=== PATIENT | male | born 1970 | race Caucasian/White ===

== ENCOUNTER 2017-11-16 11:21 | Observation (INO) | payer MEDICARE ==
[~2017-11-16] VITALS: Ht 180.3 cm; Wt 181.9 kg
[~2017-11-16 11:21] MED LIST: ACTOS 45MG45 MG/TAB PO; AMOXICILLIN 50500 MG PO; AMOXICILLIN 8751 TAB PO; CANA100T PO; CIPRO 500MG TA500 MG PO; DIABETA 5MG5 MG/TAB PO; DIABETA5 MG PO; FLEXERIL 1010 MG/TAB PO; GLUCOPHAGE850 MG/TAB PO; GLUCOTROL 5M5 MG/TAB PO; KOMBIGLYZE XR 11 TER; KOMBIGLYZE XR 11 TER PO; LEVEMIR100 U/ML SQ; LISINOPRIL1 POW; LORTAB 5/500 501 TAB PO; METFORMIN1000 MG PO; NAPROSYN500 MG PO; NORCO 325 MG-7.1 TAB PO; PERCOCET 325 MG1 TA2 PO; PREDNISONE20 MG PO; PRINZIDE 12.5 M1 TA1; PRINZIDE 12.5 M1 TA1 PO; ROCEPHIN2 GM IV
[2017-11-16 11:55] LABS: BASO # 0.1 (0.0-0.2); BASO % 0.9 % (0.0-2.0); EOS # 0.3 (0.0-0.7); EOS % 3.6 % (0-4.0); GRAN # 4.3 (1.4-6.5); GRAN % 62.6 % (42.2-75.2); LYMPH # 1.8 (1.2-3.4); LYMPH % 25.9 % (20.0-51.0); MEAN CELL VOLUME 95 fl (80.0-100.0); MEAN CORPUSCULAR HEMOGLOBIN 30 pg (27.0-31.0); MEAN CORPUSCULAR HGB CONC 32 g/dl (33.0-37.0); MEAN PLATELET VOLUME 11.4 fl (7.4-10.4); MONO # 0.5 (0.1-0.6); MONO % 6.7 % (1.7-9.3); PLATELET COUNT 206 K/mm3 (130-400); RED BLOOD COUNT 5.66 M/mm3 (4.20-5.60); REDCELL DISTRIBUTION WIDTH-CV 14.2 % (11.5-14.5)
[2017-11-16 11:58] LABS: HEMATOCRIT 53.6 % (42.0-52.0)
[2017-11-16 12:00] LABS: PROTHROMBIN TIME 12.1 SECONDS (9.7-12.8)
[2017-11-16 12:03] LABS: CREATINE KINASE 90 U/L (55-170); LIPASE 141 U/L (23-300); PARTIAL THROMBOPLASTIN TIME 31.7 SECONDS (26.0-37.0)
[2017-11-16 12:15] LABS: TROPONIN-I < 0.012 ng/mL (0.000-0.034)
[2017-11-16 12:20] LABS: ALBUMIN 3.7 gm/dL (3.5-5.0); BILIRUBIN,TOTAL 0.9 mg/dL (0.0-1.0); CREATININE, serum 0.88 mg/dL (0.66-1.25); POTASSIUM 4.2 mmol/L (3.4-5.0); TOTAL PROTEIN 7.1 gm/dL (6.4-8.2)
[2017-11-16] MEDS ORDERED: GLUCOTROL 5M5 MG/TAB PO (16:17)
[2017-11-16] MEDS ORDERED: TOPROL XL 50MG50 MG PO (16:18)
[2017-11-16] MEDS ORDERED: ZESTRIL 20MG TA20 MG PO (16:18)
[2017-11-16] MEDS ORDERED: NORVASC 5MG5 MG/TAB PO (16:19)
[2017-11-16] MEDS ORDERED: LASIX 40MG TABL40 MG PO (16:19)
[2017-11-16 17:21] VITALS: BP 116/87; PULSE 74; TEMP 98.1
[2017-11-16 20:32] VITALS: BP 132/73; PULSE 89; TEMP 97.8
[2017-11-16 23:45] VITALS: BP 109/63; PULSE 72; TEMP 97.9
[2017-11-17 03:45] VITALS: BP 141/79; PULSE 75; TEMP 98.1
[2017-11-17 06:17] LABS: BASO # 0.1 (0.0-0.2); BASO % 0.8 % (0.0-2.0); EOS # 0.2 (0.0-0.7); EOS % 3.6 % (0-4.0); GRAN # 4.3 (1.4-6.5); GRAN % 70.2 % (42.2-75.2); HEMATOCRIT 51.4 % (42.0-52.0); HEMOGLOBIN 16.2 g/dl (13.5-18.0); LYMPH # 1.1 (1.2-3.4); LYMPH % 17.2 % (20.0-51.0); MEAN CELL VOLUME 96 fl (80.0-100.0); MEAN CORPUSCULAR HEMOGLOBIN 30 pg (27.0-31.0); MEAN CORPUSCULAR HGB CONC 32 g/dl (33.0-37.0); MEAN PLATELET VOLUME 10.3 fl (7.4-10.4); MONO # 0.5 (0.1-0.6); PLATELET COUNT 178 K/mm3 (130-400); RED BLOOD COUNT 5.37 M/mm3 (4.20-5.60); REDCELL DISTRIBUTION WIDTH-CV 14.2 % (11.5-14.5)
[2017-11-17 06:38] LABS: ANION GAP 10 mmol/L (7-16); BLOOD UREA NITROGEN 16 mg/dL (9-20); CALCIUM 8.8 mg/dL (8.4-10.2); CARBON DIOXIDE 33 mmol/L (22-30); CHLORIDE 95 mmol/L (98-107); CREATININE, serum 0.83 mg/dL (0.66-1.25); GLUCOSE 103 mg/dL (74-106); MAGNESIUM 1.4 mg/dL (1.6-2.3); SODIUM 138 mmol/L (137-145)
[2017-11-17 06:43] LABS: TROPONIN-I < 0.012 ng/mL (0.000-0.034)
[2017-11-17 09:03] VITALS: BP 144/77; PULSE 74; TEMP 98.4
[2017-11-17 12:36] VITALS: BP 157/87; PULSE 73; TEMP 98.5
[2017-11-17 16:49] VITALS: BP 125/76; PULSE 73; TEMP 98
[2017-11-17 20:18] VITALS: BP 137/75; PULSE 73; TEMP 98.3
[2017-11-18 00:02] VITALS: BP 147/77; PULSE 70; TEMP 97.5
[2017-11-18 04:37] VITALS: BP 135/64; PULSE 74; TEMP 97.7
[2017-11-18 06:56] LABS: BASO # 0.1 (0.0-0.2); EOS # 0.2 (0.0-0.7); EOS % 4.4 % (0-4.0); GRAN # 3.3 (1.4-6.5); GRAN % 65.9 % (42.2-75.2); LYMPH % 20.8 % (20.0-51.0); MEAN CELL VOLUME 96 fl (80.0-100.0); MEAN CORPUSCULAR HEMOGLOBIN 30 pg (27.0-31.0); MEAN CORPUSCULAR HGB CONC 31 g/dl (33.0-37.0); MEAN PLATELET VOLUME 10.6 fl (7.4-10.4); MONO # 0.4 (0.1-0.6); MONO % 7.5 % (1.7-9.3); PLATELET COUNT 180 K/mm3 (130-400); RED BLOOD COUNT 5.74 M/mm3 (4.20-5.60); REDCELL DISTRIBUTION WIDTH-CV 14.1 % (11.5-14.5)
[2017-11-18 07:05] LABS: HEMATOCRIT 54.8 % (42.0-52.0)
[2017-11-18 07:29] LABS: CALCIUM 9.1 mg/dL (8.4-10.2); CREATININE, serum 0.84 mg/dL (0.66-1.25); POTASSIUM 4.1 mmol/L (3.4-5.0)
[2017-11-18 08:00] VITALS: BP 129/89; PULSE 77; TEMP 97.6
[2017-11-18] MEDS ORDERED: LASIX 40MG TABL40 MG PO (09:30)
[2017-11-18 11:25] VITALS: BP 132/77; PULSE 86; TEMP 97.9
== END 2017-11-18 15:00 | disposition home or self-care (01) ==
LOC: COL.ER 11:21 → MEDICAL 13:08
PROVIDERS: Emergency Medicine; Physician Assistant
DX: I11.0 Hypertensive heart disease with heart failure (principal); I50.30 Unspecified diastolic (congestive) heart failure; E11.9 Type 2 diabetes mellitus without complications; Z79.84 Long term (current) use of oral hypoglycemic drugs; R09.89 Other specified symptoms and signs involving the circulatory and respiratory systems; R60.0 Localized edema; R00.0 Tachycardia, unspecified; Z79.01 Long term (current) use of anticoagulants; Z82.49 Family history of ischemic heart disease and other diseases of the circulatory system; Z88.5 Allergy status to narcotic agent
CPT/HCPCS: 99223-AI; G0378; G8978-GP; G8979-GP; J1650; J1940; Q9967

== ENCOUNTER 2019-04-25 09:51 | Day surgery (SDC) | payer MEDICARE ==
[~2019-04-25] VITALS: Ht 180.3 cm; Wt 171.4 kg
[~2019-04-25 09:51] MED LIST changes: +LASIX 40MG TABL40 MG PO; +NORVASC 5MG5 MG/TAB PO; +TOPROL XL 50MG50 MG PO; +ZESTRIL 20MG TA20 MG PO
[2019-04-25] MEDS ORDERED: LEVEMIR100 U/ML SQ (10:26)
[2019-04-25] MEDS ORDERED: LIPITOR 10MG10 MG PO (10:26)
[2019-04-25] MEDS ORDERED: KLOR-CON SPRIN10 MEQ PO (10:27)
[2019-04-25] MEDS ORDERED: LASIX 40MG TABL40 MG PO (10:27)
[2019-04-25 10:28] VITALS: BP 149/98; PULSE 74; TEMP 98.5
[2019-04-25 12:25] VITALS: BP 122/75; PULSE 73; TEMP 97.7
--- NOTE | 2019-04-25 12:25 | NUR ---
TO BAY 6 PER CART FROM [facility]. ALERT ORIENTED X3, TALKING TO STAFF. AMBULATED TO RECLINER WITH ASSIST AND TOLERATED WELL. RECEIVED WATER.
[2019-04-25 12:40] VITALS: BP 86/66; PULSE 58
--- NOTE | 2019-04-25 12:40 | NUR ---
DR FIELDS INTO TALK WITH PATIENT AND SISTER.
[2019-04-25 12:55] VITALS: BP 109/77; PULSE 64
--- NOTE | 2019-04-25 13:10 | NUR ---
RECEIVED DISCHARGE INSTRUCTIONS AND VERBALIZED UNDERSTANDING. DISCONTINUED IV AND INT-CATHETER INTACT.
--- NOTE | 2019-04-25 13:25 | NUR ---
DISCHARGED PER WC BY NURSING STAFF TO PRIVATE CAR IN CARE OF JOSHUA.
== END 2019-04-25 13:30 | disposition home or self-care (01) ==
LOC: SDCO 09:51
DX: R19.7 Diarrhea, unspecified (principal); R10.13 Epigastric pain; R11.2 Nausea with vomiting, unspecified; K29.60 Other gastritis without bleeding; D12.2 Benign neoplasm of ascending colon; K63.5 Polyp of colon; Z83.71 Family history of colonic polyps; Z83.79 Family history of other diseases of the digestive system; E11.9 Type 2 diabetes mellitus without complications; Z79.899 Other long term (current) drug therapy; E66.9 Obesity, unspecified; Z68.43 Body mass index [BMI] 50.0-59.9, adult; Z79.84 Long term (current) use of oral hypoglycemic drugs; J45.909 Unspecified asthma, uncomplicated; I11.0 Hypertensive heart disease with heart failure; I50.9 Heart failure, unspecified; G47.33 Obstructive sleep apnea (adult) (pediatric)
CPT/HCPCS: J2704; J3010; J7030

== ENCOUNTER 2019-05-20 11:19 | Inpatient (IN) | payer MEDICARE ==
[~2019-05-20] VITALS: Ht 154.9 cm; Wt 168.0 kg
[2019-05-20] VITALS (128 sets, daily range): BP systolic 111–124; BP diastolic 81–88; PULSE 89–95; TEMP 98.4–98.7; O2SAT 95–99
[~2019-05-20 11:19] MED LIST changes: +KLOR-CON SPRIN10 MEQ PO; +LIPITOR 10MG10 MG PO
[2019-05-20 12:01] LABS: BASO # 0.1 (0.0-0.2); BASO % 0.7 % (0.0-2.0); EOS # 0.3 (0.0-0.7); EOS % 2.6 % (0-4.0); GRAN # 6.9 (1.4-6.5); GRAN % 72.8 % (42.2-75.2); HEMATOCRIT 50.2 % (42.0-52.0); HEMOGLOBIN 16.6 g/dl (13.5-18.0); LYMPH # 1.7 (1.2-3.4); LYMPH % 17.8 % (20.0-51.0); MEAN CELL VOLUME 94 fl (80.0-100.0); MEAN CORPUSCULAR HEMOGLOBIN 31 pg (27.0-31.0); MEAN CORPUSCULAR HGB CONC 33 g/dl (33.0-37.0); MEAN PLATELET VOLUME 10.5 fl (7.4-10.4); MONO # 0.5 (0.1-0.6); MONO % 5.5 % (1.7-9.3); PLATELET COUNT 198 K/mm3 (130-400); RED BLOOD COUNT 5.33 M/mm3 (4.20-5.60); REDCELL DISTRIBUTION WIDTH-CV 12.8 % (11.5-14.5)
[2019-05-20 12:03] LABS: PROTHROMBIN TIME 11.5 SECONDS (9.7-12.8)
[2019-05-20 12:05] LABS: ALBUMIN 4.6 gm/dL (3.5-5.0); CALCIUM 9.1 mg/dL (8.4-10.2); CREATININE, serum 1.24 (0.66-1.25); PARTIAL THROMBOPLASTIN TIME 30.4 SECONDS (26.0-37.0); POTASSIUM 4.2 mmol/L (3.4-5.0)
[2019-05-20 12:23] LABS: TROPONIN-I 0.036 ng/mL (0.000-0.035)
[2019-05-20 12:36] LABS: TSH w REFLEX 1.3 uIU/mL (0.465-4.680)
--- NOTE | 2019-05-20 19:15 | NUR ---
Bedside report received from DB Lester. Nita confirmed. Transfer of care at this time.
--- NOTE | 2019-05-20 19:40 | NUR ---
REPORT GIVEN TO DB LANDIS.
--- NOTE | 2019-05-20 20:00 | NUR ---
Patient resting in bed watching tv. Patient is alert and oriented x4 with no complaints of pain or SOA. Assessment complete. Patient's lungs are clear with diminished bases. HR and rhythm regular with normal S1 and S2 heard. Bowel sounds active x4. Pulses are palpable in all extremities. Patient has a small area to his left lower stomach that looks like may have been a pustule that has opened, it is red and scabbed at this time. No drainage noted. Patient has no further needs at this time. Will continue to monitor. Call light within reach.
[2019-05-21] VITALS (428 sets, daily range): BP systolic 106–129; BP diastolic 72–81; PULSE 75–87; TEMP 97.8–98.7; O2SAT 94–100
--- NOTE | 2019-05-21 | NUR ---
Patient resting in bed watching tv. Patient has no complaints of pain or SOA. Vitals obtained and remain stable. discussed with patient changing positions in the bed, but he denies any need for help right now. No further needs at this time. Will continue to monitor. Call light within reach.
--- NOTE | 2019-05-21 04:00 | NUR ---
Patient asleep but awakens easily to noise in the room. No complaints of pain, just some slight discomfort from laying still. Offered to help patient reposition. Patient denies need for help. Vitals obtained and remain stable. Patient has no further needs at this time. Will continue to monitor. Call light within reach.
[2019-05-21 05:50] LABS: BASO # 0.1 (0.0-0.2); BASO % 0.5 % (0.0-2.0); EOS # 0.3 (0.0-0.7); EOS % 3.5 % (0-4.0); GRAN # 6.7 (1.4-6.5); GRAN % 70.4 % (42.2-75.2); HEMOGLOBIN 15.5 g/dl (13.5-18.0); LYMPH # 1.8 (1.2-3.4); LYMPH % 18.8 % (20.0-51.0); MEAN CELL VOLUME 96 fl (80.0-100.0); MEAN CORPUSCULAR HEMOGLOBIN 31 pg (27.0-31.0); MEAN CORPUSCULAR HGB CONC 32 g/dl (33.0-37.0); MEAN PLATELET VOLUME 10.5 fl (7.4-10.4); MONO # 0.6 (0.1-0.6); MONO % 6.1 % (1.7-9.3); PLATELET COUNT 189 K/mm3 (130-400); REDCELL DISTRIBUTION WIDTH-CV 12.7 % (11.5-14.5)
[2019-05-21 06:00] LABS: CREATININE, serum 0.96 (0.66-1.25)
[2019-05-21 06:42] LABS: TROPONIN-I 0.051 ng/mL (0.000-0.035)
--- NOTE | 2019-05-21 07:15 | NUR ---
Bedside report given to DB Villarreal. Drips confirmed. Transfer of care.
--- NOTE | 2019-05-21 11:50 | NUR ---
Suction Worker offered to pray and offer support with patient.
--- NOTE | 2019-05-21 12:33 | NUR ---
Report phoned to DB Bertrand
--- NOTE | 2019-05-21 13:31 | NUR ---
Pt arrived to room 309 from ICU. He is awake and A/Ox4, able to transfer from w/c to recliner without difficulty. Pt denies any pain at this time. Remains on 2L O2 per NC, resp. are even and unlabored at rest. Heparin gtt running at 17 ml/hr per order into left AC. Pt was oriented to room and to staff, expressed understanding and denies needs.
--- NOTE | 2019-05-21 14:12 | NUR ---
SW met with the patient, patient's sister (Addison Farley), and nephew (Jose Carlos Alfaro) to discuss discharge plan. The patient lives alone in [place]. He reports independence with ADLs and has nocturnal oxygen from [facility]. The patient's PCP is Dr. Ray Garzon and he receives his medications at [facility]. He reports no difficulties obtaining his meds. The patient does not have advanced directives and he was not interested in completing them at this time. He states that his next of kin is his parents: Reema Sullivan (ph#[phone]) and Peña Alfaro (ph#[phone]). The patient plans to return home upon discharge. No additional needs at this time, but SW to continue to follow.
--- NOTE | 2019-05-21 16:33 | NUR ---
Pt reports continued left ankle pain. Pt currently sitting in recliner with legs dangling. Pt encouraged to lay in bed with left leg elevated, willing to do so. Ice pack applied.
--- NOTE | 2019-05-21 18:14 | NUR ---
Pt has had an uneventful afternoon. He is currently without needs. Sitting up in bed, watching TV.
--- NOTE | 2019-05-21 20:00 | NUR ---
Shift assessment complete. Pt resting in bed, awake, a&o, cooperative c cares. Pt reports continued pain to L ankle, denies other c/o. IV patent; heparin gtt infusing per orders. Pt denies further needs. Call light in reach, will continue to monitor.
[2019-05-22] VITALS (7 sets, daily range): BP systolic 93–120; BP diastolic 51–66; PULSE 72–81; TEMP 97.5–99
--- NOTE | 2019-05-22 09:56 | NUR ---
Pt is awake and A/Ox4, sitting up in bed. He states he has mild pain to his left ankle, 3/10. Denies need for pain medication at this time. MARKEL Egan notified and aware. Ankle xray ordered. Hep. gtt continues to run per order into left AC without difficulty. Pt remains on 2L O2 per NC, resp. are even and unlabored. Pt is up in room as tolerated. Denies any other needs.
--- NOTE | 2019-05-22 13:50 | NUR ---
Warfarin Initial Dosing Pharmacy Note Ordering Provider: SABRINA Indication: VTE/PE Treatment LABS: INR 1.0, Hgb 15.5, Hct 48 Recommendation: WARFARIN 5 MG HS, FOLLOW INR FOR FURTHER DOSING CHANGES
--- NOTE | 2019-05-22 17:56 | NUR ---
Pt resting in bed, watching TV. He continues to be without needs from staff.
--- NOTE | 2019-05-22 20:30 | NUR ---
Shift assessment complete. Pt resting in bed, awake, a&o, cooperative c cares. Pt continued c/o L ankle pain, rated "4/10" at this time; req PRN pain med c HS meds. Denies any other c/o. IV patent; heparin gtt infusing per orders. Pt denies further needs. Call light in reach, will continue to monitor.
[2019-05-23] VITALS (12 sets, daily range): BP systolic 102–152; BP diastolic 63–90; PULSE 73–88; TEMP 97.8–98.6
[2019-05-23 06:47] LABS: BASO # 0.1 (0.0-0.2); BASO % 0.8 % (0.0-2.0); EOS # 0.5 (0.0-0.7); EOS % 4.6 % (0-4.0); GRAN # 6.5 (1.4-6.5); GRAN % 61.6 % (42.2-75.2); HEMATOCRIT 49.2 % (42.0-52.0); HEMOGLOBIN 15.7 g/dl (13.5-18.0); LYMPH # 2.7 (1.2-3.4); LYMPH % 25.8 % (20.0-51.0); MEAN CELL VOLUME 96 fl (80.0-100.0); MEAN CORPUSCULAR HEMOGLOBIN 31 pg (27.0-31.0); MEAN CORPUSCULAR HGB CONC 32 g/dl (33.0-37.0); MEAN PLATELET VOLUME 10.5 fl (7.4-10.4); MONO # 0.7 (0.1-0.6); MONO % 6.4 % (1.7-9.3); PLATELET COUNT 239 K/mm3 (130-400); RED BLOOD COUNT 5.12 M/mm3 (4.20-5.60); REDCELL DISTRIBUTION WIDTH-CV 12.6 % (11.5-14.5)
[2019-05-23 07:03] LABS: CALCIUM 9.3 mg/dL (8.4-10.2); CREATININE, serum 1.48 (0.66-1.25); POTASSIUM 4.1 mmol/L (3.4-5.0)
[2019-05-23 08:43] LABS: PROTHROMBIN TIME 11.3 SECONDS (9.7-12.8)
--- NOTE | 2019-05-23 09:35 | NUR ---
Pt assessment completed and charted. Pt sitting in bed A&O. pt denies pain at this time. Pt denies SOB, dizziness, chest pain, numbness or tingling, N/V/D. Lung sounds clear, heart RRR, pulses strong bilaterally. BLE edema present 1-2+. Bilateral shins have discoloration noted. pt denies Lt ankle pain at this time, states it is "creeping back up". LAC IV w/ Heparin gt at 14ml/hr running w/ no complications. Denies other concerns at this time.
--- NOTE | 2019-05-23 12:15 | NUR ---
Pt heparin gtt stopped, pt down for IVC filter procedure at this time. Escorted via bed. Consent signed and on chart.
--- NOTE | 2019-05-23 12:38 | NUR ---
SEE MERGE DOCUMENTATION FOR MEDICATION ADMINISTRATION TIMES AND INTRA/POST PROCEDURE SEDATION ASSESSMENTS.
--- NOTE | 2019-05-23 13:30 | NUR ---
Pt back from procedure. Pt is A&O. Flat time in process. Rt groin site covered w/ gauze and tegaderm, site is CDI, soft to touch, no hematoma. Pedal pulses palpable. Pt denies pain. No other concerns voiced at this time. Post op vitals monitoring in progress.
--- NOTE | 2019-05-23 18:15 | NUR ---
Pt laying in bed, VSS, right groin site CDI, soft to touch, no hematoma. Pt rating back pain a 5/10, states it is "feeling better than when I was laying flat". No other concerns voiced at this time.
--- NOTE | 2019-05-23 20:00 | NUR ---
Shift assessment complete. Pt resting in bed, awake, a&o, cooperative c cares. Pt denies pain or any other c/o at this time. IV patent; hep gtt infusing per orders. Tele in place. Pt denies needs. Call light in reach, will continue to monitor.
[2019-05-24] VITALS: BP 99/58; PULSE 70; TEMP 98.4
[2019-05-24 06:42] LABS: BASO # 0.1 (0.0-0.2); BASO % 0.9 % (0.0-2.0); EOS # 0.3 (0.0-0.7); EOS % 4.5 % (0-4.0); GRAN # 4.3 (1.4-6.5); GRAN % 61.6 % (42.2-75.2); HEMATOCRIT 44.8 % (42.0-52.0); HEMOGLOBIN 14.2 g/dl (13.5-18.0); LYMPH # 1.7 (1.2-3.4); LYMPH % 24.5 % (20.0-51.0); MEAN CELL VOLUME 97 fl (80.0-100.0); MEAN CORPUSCULAR HEMOGLOBIN 31 pg (27.0-31.0); MEAN CORPUSCULAR HGB CONC 32 g/dl (33.0-37.0); MEAN PLATELET VOLUME 10.4 fl (7.4-10.4); MONO # 0.5 (0.1-0.6); MONO % 7.8 % (1.7-9.3); PLATELET COUNT 191 K/mm3 (130-400); RED BLOOD COUNT 4.63 M/mm3 (4.20-5.60); REDCELL DISTRIBUTION WIDTH-CV 12.5 % (11.5-14.5)
[2019-05-24 06:54] LABS: PROTHROMBIN TIME 12.2 SECONDS (9.7-12.8)
[2019-05-24 07:07] LABS: CREATININE, serum 1.17 (0.66-1.25); POTASSIUM 4.3 mmol/L (3.4-5.0)
[2019-05-24 07:33] VITALS: BP 112/65; PULSE 65; TEMP 97.5
--- NOTE | 2019-05-24 09:46 | NUR ---
Pt assessment completed and charted. Pt sitting in bed, just finished breakfast. Denies pain, states he has "some discomfort in back from yesterdays procedure". Denies pain medication at this time. LAC IV w/ hepparin gtt infusing at 15.5 ml/hr w/ no complications. C/O "wheezing due to nose being stuffy". Pt on 3L NC. Tele in place, denies chest pain, dizziness, N/V/D. Rt groin site from IVC filter placement is CDI, covered w/ gauze and tegaderm, pt denies pain. No other concerns voiced at this time. Morning medications adminsitered per SEP.
[2019-05-24 12:41] VITALS: BP 120/74; PULSE 69; TEMP 98.5
[2019-05-24 15:28] VITALS: BP 108/69; PULSE 73; TEMP 98.2
[2019-05-24 19:45] VITALS: BP 119/67; PULSE 78; TEMP 98.2
--- NOTE | 2019-05-24 19:51 | NUR ---
Pt had uneventful day, up with therapy walking, up to recliner at bedside. Denied pain throughout day, repositioning in chair and bed as needed. No other concerns voiced. Report given to DB Orourke.
--- NOTE | 2019-05-24 20:00 | NUR ---
Shift assessment complete. Pt resting in bed, awake, a&o, cooperative c cares. Pt reports continued "soreness" to back et generalized, denies need for intervention at this time. Denies any other c/o. IV patent; hep gtt infusing per orders. Tele in place. O2 per NC. Pt denies further needs at this time. Call light in reach, will monitor.
[2019-05-24 23:27] VITALS: BP 110/65; PULSE 58; TEMP 97.9
[2019-05-25 07:23] LABS: BASO % 0.5 % (0.0-2.0); EOS # 0.3 (0.0-0.7); EOS % 4.5 % (0-4.0); GRAN # 4.8 (1.4-6.5); GRAN % 64.4 % (42.2-75.2); HEMATOCRIT 42.3 % (42.0-52.0); HEMOGLOBIN 13.5 g/dl (13.5-18.0); LYMPH # 1.7 (1.2-3.4); LYMPH % 22.7 % (20.0-51.0); MEAN CELL VOLUME 96 fl (80.0-100.0); MEAN CORPUSCULAR HEMOGLOBIN 31 pg (27.0-31.0); MEAN CORPUSCULAR HGB CONC 32 g/dl (33.0-37.0); MEAN PLATELET VOLUME 10.7 fl (7.4-10.4); MONO # 0.5 (0.1-0.6); MONO % 7.2 % (1.7-9.3); PLATELET COUNT 204 K/mm3 (130-400); RED BLOOD COUNT 4.39 M/mm3 (4.20-5.60); REDCELL DISTRIBUTION WIDTH-CV 12.5 % (11.5-14.5)
[2019-05-25 07:27] LABS: INR 1.2 (0.8-3.0); PROTHROMBIN TIME 14.2 SECONDS (9.7-12.8)
[2019-05-25 07:30] VITALS: BP 107/68; PULSE 65; TEMP 98.1
[2019-05-25 07:36] LABS: CREATININE, serum 1.12 (0.66-1.25)
[2019-05-25 11:00] VITALS: BP 127/79; PULSE 80; TEMP 98
[2019-05-25 15:33] VITALS: BP 112/64; PULSE 79; TEMP 98.7
--- NOTE | 2019-05-25 16:08 | NUR ---
NICOLLE met with the patient to revisit his discharge plan. The patient plans to return home with no needs. The patient reports he has been getting good care. director pharmacy services will continue to monitor.
[2019-05-25 19:18] VITALS: BP 123/64; PULSE 83; TEMP 97.5
--- NOTE | 2019-05-25 21:07 | NUR ---
Resting in bed. Assessment complete. Left lower lobe and right upper lobe diminished otherwise clear. Heart sounds normal. Bowels active x4. Pulses strong throughout. Bilateral lower leg discoloration-brownish in color. Left popliteal warm to touch. Denies pain. Heparin gtt infusing at 15.5 ml/hr into left hand without complications. Denies needs at this time. Call light in reach.
[2019-05-25 23:44] VITALS: BP 110/67; PULSE 65; TEMP 98
--- NOTE | 2019-05-26 00:06 | NUR ---
Resting in bed. Denies pain. Call light in reach.
[2019-05-26 04:11] VITALS: BP 107/60; PULSE 65; TEMP 98
--- NOTE | 2019-05-26 05:50 | NUR ---
Patient had uneventful night. Resting in bed this AM. Denies needs. call light in reach.
--- NOTE | 2019-05-26 06:54 | NUR ---
Report given to DB George
[2019-05-26 07:02] LABS: BASO % 0.6 % (0.0-2.0); EOS # 0.4 (0.0-0.7); EOS % 5.1 % (0-4.0); GRAN # 4.5 (1.4-6.5); HEMATOCRIT 42.7 % (42.0-52.0); HEMOGLOBIN 13.7 g/dl (13.5-18.0); LYMPH # 1.8 (1.2-3.4); LYMPH % 24.5 % (20.0-51.0); MEAN CELL VOLUME 96 fl (80.0-100.0); MEAN CORPUSCULAR HEMOGLOBIN 31 pg (27.0-31.0); MEAN CORPUSCULAR HGB CONC 32 g/dl (33.0-37.0); MEAN PLATELET VOLUME 10.8 fl (7.4-10.4); MONO # 0.5 (0.1-0.6); MONO % 7.1 % (1.7-9.3); PLATELET COUNT 214 K/mm3 (130-400); RED BLOOD COUNT 4.45 M/mm3 (4.20-5.60); REDCELL DISTRIBUTION WIDTH-CV 12.5 % (11.5-14.5)
[2019-05-26 07:04] LABS: INR 1.4 (0.8-3.0)
[2019-05-26 07:06] LABS: CALCIUM 9.1 mg/dL (8.4-10.2); CREATININE, serum 1.08 (0.66-1.25)
[2019-05-26 07:31] VITALS: BP 111/60; PULSE 64; TEMP 97.9
[2019-05-26 10:49] VITALS: BP 114/67; PULSE 76; TEMP 98.5
[2019-05-26 15:21] VITALS: BP 134/85; PULSE 74; TEMP 98.1
[2019-05-26 20:00] VITALS: BP 116/69; PULSE 68; TEMP 98.4
--- NOTE | 2019-05-26 21:00 | NUR ---
Sitting in recliner. Assessment complete. Lungs clear. Heart sounds normal. Bowels active x4. Pulses present throughout. Bilateral lower leg edema +1 with brownish discoloration. Heparin gtt infusing at 15.5ml/hr. New bag hung. Patient denies pain at this time. Linens changed. Call light in reach.
[2019-05-26 23:55] VITALS: BP 99/60; PULSE 65; TEMP 98.1
--- NOTE | 2019-05-27 00:03 | NUR ---
Resting in bed. Denies needs. Telemetry batteries changed. Call nelsy wilson.
[2019-05-27 04:30] VITALS: BP 104/61; PULSE 65; TEMP 97.7
--- NOTE | 2019-05-27 05:45 | NUR ---
Patient had uneventful night. Continues on heparin infusing. Resting in bed this AM. Call light in reach.
[2019-05-27 06:29] LABS: BASO # 0.1 (0.0-0.2); BASO % 0.8 % (0.0-2.0); EOS # 0.4 (0.0-0.7); EOS % 5.2 % (0-4.0); GRAN # 4.4 (1.4-6.5); GRAN % 60.4 % (42.2-75.2); HEMOGLOBIN 13.6 g/dl (13.5-18.0); LYMPH % 26.6 % (20.0-51.0); MEAN CELL VOLUME 96 fl (80.0-100.0); MEAN CORPUSCULAR HEMOGLOBIN 31 pg (27.0-31.0); MEAN CORPUSCULAR HGB CONC 32 g/dl (33.0-37.0); MEAN PLATELET VOLUME 10.5 fl (7.4-10.4); MONO # 0.5 (0.1-0.6); MONO % 6.5 % (1.7-9.3); PLATELET COUNT 210 K/mm3 (130-400); RED BLOOD COUNT 4.38 M/mm3 (4.20-5.60); REDCELL DISTRIBUTION WIDTH-CV 12.5 % (11.5-14.5)
[2019-05-27 06:36] LABS: INR 2.2 (0.8-3.0); PROTHROMBIN TIME 26.9 SECONDS (9.7-12.8)
[2019-05-27 06:48] LABS: CALCIUM 9.1 mg/dL (8.4-10.2); CREATININE, serum 1.02 (0.66-1.25); POTASSIUM 4.1 mmol/L (3.4-5.0)
--- NOTE | 2019-05-27 07:05 | NUR ---
Report given to DB George
[2019-05-27 07:23] VITALS: BP 105/70; PULSE 66; TEMP 97.8
[2019-05-27] MEDS ORDERED: COUMADIN 5MG5 MG/TAB PO (08:49)
--- NOTE | 2019-05-27 09:59 | NUR ---
NICOLLE attended clinical rounds. A exercise oximetry was ordered. The patient qualified for 2 liters of continuous oxygen. NICOLLE then followed up with the patient to discuss the continuous oxygen and presented and explained the Patient Choice Form for DME. The patient already receives his nocturnal oxygen from [facility] and he chose them again. The patient states that he already has his concetrator and portable tanks at home. NICOLLE contacted and faxed the continuous oxygen order to Anali at [facility]. The patient is to discharge back home today, 05/27. NICOLLE presented and explained the IM form to the patient. The patient verbalized understanding, signed, and he was provided a copy. No additional needs at this time.
--- NOTE | 2019-05-27 12:15 | NUR ---
DISHCARGE EDUCATION WAS PROVIDED. THIS NURSE WENT OVER VIT. K DIET ALONG WITH WARFARIN. INFORMED PT ON APPOINTMENTS MADE AND INR BLOOD CHECKS. PT VOICED UNDERSTANDING AND REPEATED TEACHING. IV AND TELE REMOVED WITHOUT ISSUE. AMMONIA OPERATOR ESCORTED PT VIOLET.
== END 2019-05-27 12:15 | disposition home or self-care (01) | DRG 166 ==
LOC: COL.ER 11:19 → MEDICAL 13:12 → ICU 13:12 → MEDICAL 05-21 13:31
PROVIDERS: Emergency Medicine; Internal Medicine Pulmonary Disease; Nurse Practitioner Family; Physician Assistant; ADMIT Internal Medicine
PROC: 06H03DZ Insertion of Intraluminal Device into Inferior Vena Cava, Percutaneous Approach (ICD-10-PCS; principal; 2019-05-23)
DX: I26.92 Saddle embolus of pulmonary artery without acute cor pulmonale (principal); I21.A1 Myocardial infarction type 2; I82.431 Acute embolism and thrombosis of right popliteal vein; I82.4Z1 Acute embolism and thrombosis of unspecified deep veins of right distal lower extremity; I50.32 Chronic diastolic (congestive) heart failure; E87.3 Alkalosis; E66.01 Morbid (severe) obesity due to excess calories; I11.0 Hypertensive heart disease with heart failure; G47.33 Obstructive sleep apnea (adult) (pediatric); E87.8 Other disorders of electrolyte and fluid balance, not elsewhere classified; M25.572 Pain in left ankle and joints of left foot; R09.02 Hypoxemia; E78.5 Hyperlipidemia, unspecified; J45.909 Unspecified asthma, uncomplicated; Z79.84 Long term (current) use of oral hypoglycemic drugs; Z56.0 Unemployment, unspecified
CPT/HCPCS: 99223-AI; 99231-AI; 99233-AI; 99239; C1880; C1894; J1644; J1815; J1885; J2250; J3010; Q9967

== ENCOUNTER → 2019-05-30 | Outpatient (CLI) | payer MEDICARE ==
[~2019-05-30] MED LIST changes: +COUMADIN 5MG5 MG/TAB PO
[2019-05-30 13:56] LABS: PROTHROMBIN TIME 36.7 SECONDS (9.7-12.8)
== END ==
LOC: COL.LAB 13:10
PROVIDERS: Nurse Practitioner Family
DX: I26.99 Other pulmonary embolism without acute cor pulmonale (principal)

== ENCOUNTER → 2019-06-13 | Outpatient (CLI) | payer MEDICARE | LOC: COL.LAB 09:57 | DX: M10.072 Idiopathic gout, left ankle and foot (principal) ==

== ENCOUNTER → 2019-07-18 | Outpatient (CLI) | payer MEDICARE | LOC: COL.VAS 09:00 | DX: Z13.6 Encounter for screening for cardiovascular disorders (principal); I26.99 Other pulmonary embolism without acute cor pulmonale; I25.2 Old myocardial infarction; I51.7 Cardiomegaly ==

== ENCOUNTER → 2019-07-21 | Outpatient (CLI) | payer MEDICARE ==
[2019-07-21 12:50] LABS: INR 1.5 (0.8-3.0)
== END ==
LOC: COL.LAB 12:10 → COL.RAD 13:00
PROVIDERS: Internal Medicine Pulmonary Disease
DX: J98.11 Atelectasis (principal); J98.6 Disorders of diaphragm; Z86.711 Personal history of pulmonary embolism
CPT/HCPCS: Q9967

== ENCOUNTER 2019-08-15 09:51 | Outpatient (CLI) | payer MEDICARE ==
[2019-08-15] VITALS (8 sets, daily range): BP systolic 121–171; BP diastolic 70–95; PULSE 87–96; TEMP 98
[~2019-08-15] VITALS: Ht 152.4 cm; Wt 169.8 kg
[2019-08-15] MEDS ORDERED: LASIX 40MG TABL40 MG PO ×2 (10:53)
[2019-08-15] MEDS ORDERED: ZYLOPRIM 100MG100 MG PO (10:54)
[2019-08-15] MEDS ORDERED: ZYLOPRIM 300MG300 MG PO (10:55)
--- NOTE | 2019-08-15 13:08 | NUR ---
Pt to laboratory operations coordinator at this time by bed with laboratory operations coordinator staff.
--- NOTE | 2019-08-15 13:25 | NUR ---
SEE MERGE FOR MEDICATION ADMINISTRATION TIMES AND INTRA AND POST SEDATION ASSESSMENTS.
--- NOTE | 2019-08-15 15:52 | NUR ---
report received from DB Lee.
--- NOTE | 2019-08-15 17:00 | NUR ---
Discharge instructions given to pt.Pt verbalizes understanding.INT removed,catheter tip intact.Pt escorted out via wheelchair by this nurse.
== END 2019-08-15 17:03 | disposition home or self-care (01) ==
LOC: COL.VAS 09:51 → COL.CAR 10:30 → COL.VAS 17:03
DX: Z86.718 Personal history of other venous thrombosis and embolism (principal)
CPT/HCPCS: J1644; J2250; J3010; J7120; Q9967

== ENCOUNTER → 2019-08-18 | Outpatient (CLI) | payer MEDICARE ==
[~2019-08-18] MED LIST changes: +ZYLOPRIM 100MG100 MG PO; +ZYLOPRIM 300MG300 MG PO
== END ==
LOC: COL.RAD 12:10
DX: J98.6 Disorders of diaphragm (principal)

== ENCOUNTER 2020-09-03 22:24 | Emergency (ER) | payer MEDICARE ==
[~2020-09-03] VITALS: Ht 180.3 cm; Wt 113.6 kg
[2020-09-03 22:40] VITALS: TEMP 98.4
[2020-09-03 23:15] LABS: BASO # 0.1 (0.0-0.2); BASO % 0.8 % (0.0-2.0); EOS # 0.3 (0.0-0.7); EOS % 2.9 % (0-4.0); GRAN # 7.6 (1.4-6.5); GRAN % 77.2 % (42.2-75.2); HEMOGLOBIN 16.4 g/dl (13.5-18.0); LYMPH # 1.3 (1.2-3.4); LYMPH % 12.8 % (20.0-51.0); MEAN CELL VOLUME 93 fl (80.0-100.0); MEAN CORPUSCULAR HEMOGLOBIN 29 pg (27.0-31.0); MEAN CORPUSCULAR HGB CONC 31 g/dl (33.0-37.0); MEAN PLATELET VOLUME 10.4 fl (7.4-10.4); MONO # 0.6 (0.1-0.6); PLATELET COUNT 194 K/mm3 (130-400); RED BLOOD COUNT 5.62 M/mm3 (4.20-5.60); REDCELL DISTRIBUTION WIDTH-CV 15.9 % (11.5-14.5)
[2020-09-03 23:17] LABS: HEMATOCRIT 52.3 % (42.0-52.0)
[2020-09-03 23:22] LABS: INR 1.7 (0.8-3.0); PROTHROMBIN TIME 18.8 SECONDS (9.7-12.8)
[2020-09-03 23:25] LABS: ALANINE AMINOTRANSFERASE 19 U/L (4-49); ALKALINE PHOSPHATASE 78 U/L (50-136); ANION GAP 10 mmol/L (7-16); AST,SGOT 25 U/L (15-37); BILIRUBIN,TOTAL 0.6 mg/dL (0.0-1.0); BLOOD UREA NITROGEN 18 mg/dL (9-20); CALCIUM 8.8 mg/dL (8.4-10.2); CARBON DIOXIDE 27 mmol/L (22-30); CHLORIDE 102 mmol/L (98-107); CREATININE, serum 1.03 (0.66-1.25); GLUCOSE 177 mg/dL (74-106); LIPASE 264 U/L (23-300); POTASSIUM 3.6 mmol/L (3.4-5.0); SODIUM 139 mmol/L (137-145)
[2020-09-03 23:26] LABS: D-DIMER < 200.00 ng/mLDDu (200-230)
[2020-09-03 23:35] LABS: ARTERIAL BLOOD GAS BASE EXCESS 1.3 (-2-2); ARTERIAL BLOOD GAS HCO3 27.6 meq/L (22-26); ARTERIAL BLOOD GAS PCO2 49.1 mmHg (35-45); ARTERIAL BLOOD GAS PO2 62.2 mmHg (80-100); ARTERIAL BLOOD GAS pH 7.37 (7.35-7.45)
[2020-09-03 23:36] LABS: ARTERIAL BLD GAS O2 SATURATION 92.2 % (92-100)
[2020-09-03 23:38] LABS: TROPONIN-I < 0.012 ng/mL (0.000-0.035)
[2020-09-03] MEDS ORDERED: COUMADIN 77.5 MG/TAB PO (23:58)
[2020-09-04 00:15] VITALS: BP 125/92; PULSE 98
== END 2020-09-04 00:15 | disposition home or self-care (01) ==
LOC: COL.ER 22:24
PROVIDERS: Family Medicine
DX: I50.9 Heart failure, unspecified (principal); J44.9 Chronic obstructive pulmonary disease, unspecified; E11.9 Type 2 diabetes mellitus without complications; I10 Essential (primary) hypertension; E78.5 Hyperlipidemia, unspecified; Z86.711 Personal history of pulmonary embolism; Z88.6 Allergy status to analgesic agent; Z79.4 Long term (current) use of insulin; Z79.01 Long term (current) use of anticoagulants

== ENCOUNTER 2023-07-18 10:44 | Emergency (ER) | payer MEDICARE ==
[~2023-07-18] VITALS: Ht 180.3 cm; Wt 103.2 kg
[~2023-07-18 10:44] MED LIST changes: +AMBIEN 10MG10 MG PO; +CEFTIN 250250 MG/TAB PO; +COUMADIN 77.5 MG/TAB PO; +ELIQUIS 5MG PO; +FLONASE NASAL S16 GM NS; +LANTUS SOLOS100 U/ML SQ; +MUCUS RELIEF200 MG PO; +MYSOLINE 5050 MG/TAB PO; +PRINIVIL20 MG PO; +RT ADVAIR HFA 1112 G IH; +ZYRTEC 10MG10 MG PO
[2023-07-18 11:23] LABS: BASO # 0.1 K/mm3 (0.0-0.2); BASO % 0.8 % (0.0-2.0); EOS # 0.2 K/mm3 (0.0-0.7); EOS % 2.7 % (0.0-4.0); GRAN # 5.5 K/mm3 (1.4-6.5); GRAN % 72.3 % (42.2-75.2); HEMATOCRIT 50.4 % (42.0-52.0); HEMOGLOBIN 16.6 g/dl (13.5-18.0); LYMPH # 1.4 K/mm3 (1.2-3.4); LYMPH % 17.8 % (20.0-51.0); MEAN CELL VOLUME 95 fl (80.0-100.0); MEAN CORPUSCULAR HEMOGLOBIN 31 pg (27-31); MEAN CORPUSCULAR HGB CONC 33 g/dl (33.0-37.0); MEAN PLATELET VOLUME 10.1 fl (7.4-10.4); MONO # 0.5 K/mm3 (0.1-0.6); MONO % 5.9 % (1.7-9.3); PLATELET COUNT 192 K/mm3 (130-400); RED BLOOD COUNT 5.29 M/mm3 (4.20-5.60); REDCELL DISTRIBUTION WIDTH-CV 14.9 % (11.5-14.5)
[2023-07-18 11:40] LABS: ALANINE AMINOTRANSFERASE 13 U/L (0-55); ALBUMIN 3.8 gm/dL (3.5-5.0); ALKALINE PHOSPHATASE 98 U/L (40-150); ANION GAP 15 mmol/L (7-16); AST,SGOT 19 U/L (5-34); BILIRUBIN,TOTAL 1.1 mg/dL (0.2-1.2); BLOOD UREA NITROGEN 15 mg/dL (8-26); CALCIUM 9.7 mg/dL (8.4-10.2); CARBON DIOXIDE 21 mmol/L (22-29); CHLORIDE 101 mmol/L (98-107); CREATININE, serum 1.27 mg/dL (0.72-1.25); GLUCOSE 148 mg/dL (70-99); SODIUM 137 mmol/L (136-145); TOTAL PROTEIN 7.1 gm/dL (6.2-8.1)
[2023-07-18 11:48] LABS: TROPONIN-I < 0.010 ng/mL (0.00-0.033)
[2023-07-18] MEDS ORDERED: DOXYCYCLINE HY100 MG PO (12:58)
[2023-07-18] MEDS ORDERED: PREDNISONE50 MG PO (12:58)
[2023-07-18] MEDS ORDERED: IPRATROPIUM BROM3 M1 IH (12:58)
[2023-07-18] MEDS ORDERED: NEB MC (12:58)
[2023-07-18 13:35] VITALS: BP 121/68; PULSE 102; TEMP 97.8
== END 2023-07-18 13:35 | disposition home or self-care (01) ==
LOC: COL.ER 10:44
PROVIDERS: Physician Assistant
DX: J44.1 Chronic obstructive pulmonary disease with (acute) exacerbation (principal); E66.9 Obesity, unspecified; Z68.31 Body mass index [BMI] 31.0-31.9, adult; Z86.718 Personal history of other venous thrombosis and embolism; Z79.01 Long term (current) use of anticoagulants; Z79.51 Long term (current) use of inhaled steroids
CPT/HCPCS: J1100; J7030

== ENCOUNTER 2023-08-21 18:30 | Inpatient (IN) | payer MEDICARE ==
[~2023-08-21] VITALS: Ht 180.3 cm; Wt 150.4 kg
[~2023-08-21 18:30] MED LIST changes: +DOXYCYCLINE HY100 MG PO; +IPRATROPIUM BROM3 M1 IH; +NEB MC; +PREDNISONE50 MG PO
[2023-08-21] MEDS ORDERED: Albuterol/Ipratropium 3 MG-0.5 MG/3 ML Neb Soln IH ONE ×2 (19:00→22:30)
[2023-08-21 19:42] LABS: BASO # 0.1 K/mm3 (0.0-0.2); BASO % 1.1 % (0.0-2.0); EOS # 0.6 K/mm3 (0.0-0.7); GRAN # 5.9 K/mm3 (1.4-6.5); GRAN % 62.4 % (42.2-75.2); HEMATOCRIT 50.1 % (42.0-52.0); HEMOGLOBIN 16.2 g/dl (13.5-18.0); LYMPH # 2.2 K/mm3 (1.2-3.4); LYMPH % 23.3 % (20.0-51.0); MEAN CELL VOLUME 98 fl (80.0-100.0); MEAN CORPUSCULAR HEMOGLOBIN 32 pg (27-31); MEAN CORPUSCULAR HGB CONC 32 g/dl (33.0-37.0); MEAN PLATELET VOLUME 11.2 fl (7.4-10.4); MONO # 0.6 K/mm3 (0.1-0.6); MONO % 6.7 % (1.7-9.3); PLATELET COUNT 255 K/mm3 (130-400); RED BLOOD COUNT 5.14 M/mm3 (4.20-5.60); REDCELL DISTRIBUTION WIDTH-CV 14.7 % (11.5-14.5)
[2023-08-21 19:55] LABS: ALBUMIN 3.6 gm/dL (3.5-5.0); BILIRUBIN,TOTAL 0.7 mg/dL (0.2-1.2); CALCIUM 9.7 mg/dL (8.4-10.2); CREATININE, serum 1.54 mg/dL (0.72-1.25); POTASSIUM 4.3 mmol/L (3.5-4.5); TOTAL PROTEIN 7.1 gm/dL (6.2-8.1)
[2023-08-21 20:01] LABS: TROPONIN-I 0.011 ng/mL (0.00-0.033)
[2023-08-21] MEDS ORDERED: Albuterol 0.083% Neb Soln 2.5 MG/3 ML UD IH ONE ×2 (21:15→22:30)
[2023-08-21] MEDS ORDERED: dexAMETHasone 10 MG/ML VIAL IV ONE (22:00)
--- NOTE | 2023-08-21 22:45 | NUR ---
CONTINUOUS BREATHING TREATMENT ADMINISTERED. SEE MAR FOR DETAILS
[2023-08-21] MEDS ORDERED: Polyethylene Glycol 3350 17 GM PDS PO PRN (23:30)
[2023-08-21] MEDS ORDERED: Albuterol 0.083% Neb Soln 2.5 MG/3 ML UD IH PRN (23:30)
[2023-08-21] MEDS ORDERED: Ondansetron 4 MG/2 ML VIAL IV PRN (23:30)
[2023-08-21] MEDS ORDERED: Acetaminophen 325 MG TAB PO PRN (23:30)
[2023-08-22] VITALS (10 sets, daily range): BP systolic 118–134; BP diastolic 71–83; PULSE 95–125; TEMP 97.5–98.1
[2023-08-22] MEDS ORDERED: cefTRIAXone 2 G in Water For Injection,Sterile 20 ML IV SCH
[2023-08-22] MEDS ORDERED: Insulin Aspart (NovoLOG) SQ SCH (02:15)
[2023-08-22] MEDS ORDERED: Dextrose (Glucose) 15 GM (4 x 3.75 GM) Chewable TABLET PACK PO PRN (02:30)
[2023-08-22] MEDS ORDERED: Dextrose 50% Water 25 GM/50 ML SYRINGE IV PRN (02:30)
[2023-08-22] MEDS ORDERED: Glucagon 1 MG VIAL IM PRN (02:30)
[2023-08-22] MEDS ORDERED: IPRATROPIUM BROM3 M1 IH (02:42)
[2023-08-22] MEDS ORDERED: BASAGLAR K100 UNIT/1 SQ (02:43)
[2023-08-22] MEDS ORDERED: MYSOLINE 5050 MG/TAB PO (02:44)
[2023-08-22] MEDS ORDERED: LIPITOR 10MG10 MG PO (02:44)
[2023-08-22] MEDS ORDERED: ZYRTEC 10MG10 MG PO (02:45)
[2023-08-22] MEDS ORDERED: GLUCOTROL 5M5 MG/TAB PO (02:46)
[2023-08-22] MEDS ORDERED: LASIX 40MG TABL40 MG PO (02:46)
[2023-08-22] MEDS ORDERED: FLONASE NASAL S16 GM NS (02:47)
[2023-08-22] MEDS ORDERED: GLUCOPHAGE850 MG/TAB PO (02:47)
[2023-08-22] MEDS ORDERED: LR 1,000 ML IV SCH (03:00)
[2023-08-22] MEDS ORDERED: Albuterol/Ipratropium 3 MG-0.5 MG/3 ML Neb Soln IH SCH (03:00)
[2023-08-22] MEDS ORDERED: Formoterol 20 MCG,Budesonide 0.5 MG IH SCH (07:00)
[2023-08-22] MEDS ORDERED: predniSONE 20 MG TAB PO SCH (08:00)
[2023-08-22] MEDS ORDERED: Apixaban 5 MG TAB PO SCH (09:00)
[2023-08-22] MEDS ORDERED: Allopurinol 100 MG TAB PO SCH (09:00)
[2023-08-22] MEDS ORDERED: amLODIPine 5 MG TAB PO SCH (09:00)
[2023-08-22] MEDS ORDERED: Primidone 50 MG TAB PO SCH (09:00)
[2023-08-22] MEDS ORDERED: Cetirizine 10 MG TAB PO SCH (09:00)
[2023-08-22] MEDS ORDERED: dexAMETHasone 10 MG/ML VIAL IV SCH (09:15)
[2023-08-22 10:00] LABS: BASO % 0.3 % (0.0-2.0); EOS % 0.2 % (0.0-4.0); GRAN # 5.2 K/mm3 (1.4-6.5); GRAN % 89.4 % (42.2-75.2); HEMATOCRIT 46.3 % (42.0-52.0); HEMOGLOBIN 15.6 g/dl (13.5-18.0); LYMPH # 0.5 K/mm3 (1.2-3.4); LYMPH % 8.2 % (20.0-51.0); MEAN CELL VOLUME 95 fl (80.0-100.0); MEAN CORPUSCULAR HEMOGLOBIN 32 pg (27-31); MEAN CORPUSCULAR HGB CONC 34 g/dl (33.0-37.0); MEAN PLATELET VOLUME 10.9 fl (7.4-10.4); MONO # 0.1 K/mm3 (0.1-0.6); MONO % 1.2 % (1.7-9.3); PLATELET COUNT 214 K/mm3 (130-400); REDCELL DISTRIBUTION WIDTH-CV 14.7 % (11.5-14.5)
[2023-08-22 10:12] LABS: CALCIUM 9.6 mg/dL (8.4-10.2); CREATININE, serum 1.29 mg/dL (0.72-1.25); POTASSIUM 4.6 mmol/L (3.5-4.5)
[2023-08-22 10:16] LABS: INR 1.2 (0.8-3.0); PROTHROMBIN TIME 12.9 SECONDS (9.7-12.8)
[2023-08-22 10:18] LABS: PARTIAL THROMBOPLASTIN TIME 28.3 SECONDS (26.0-37.0)
[2023-08-22 10:19] LABS: D-DIMER < 200.00 ng/mLDDu (200-230)
--- NOTE | 2023-08-22 11:37 | NUR ---
Patient alert and oriented x4. Shift assessment complete this morning. Denies pain or discomfort. Stable on 2L O2. Fine crackles noted to bases of lungs. Upper lobes clear. LR infusing per orders through left forearm IV. Voices no concerns at this time. Call light within reach.
--- NOTE | 2023-08-22 18:55 | NUR ---
Patient remains stable, no concerns at this time. Denies pain. Call light within reach.
[2023-08-22] MEDS ORDERED: Insulin Aspart (NovoLOG) SQ ONE (20:15)
[2023-08-22] MEDS ORDERED: Zolpidem 10 MG TAB PO PRN (21:00)
[2023-08-22] MEDS ORDERED: Atorvastatin 10 MG TAB PO SCH (21:00)
[2023-08-23] VITALS (13 sets, daily range): BP systolic 103–144; BP diastolic 69–83; PULSE 89–99; TEMP 97.4–98
[2023-08-23 08:26] LABS: CALCIUM 9.3 mg/dL (8.4-10.2); CREATININE, serum 1.06 mg/dL (0.72-1.25); POTASSIUM 4.5 mmol/L (3.5-4.5)
--- NOTE | 2023-08-23 11:52 | NUR ---
SW met with patient to complete intake. Patient provides he lives in [facility] alone. Next of kin is carlos Sullivan [phone]. Patient provides that he does not utilize DME, is independent with ADLs, and does not utilize HH services at this time. PCP is Dr. Garzon, and pharmacy is [facility]. Patient provides that he is actively working with someone to obtain documented DPOA/HC. Patient states that he plans to return to his home upon DC. SW will continue to follow. DC plan: home
--- NOTE | 2023-08-23 15:00 | NUR ---
RT REPORTED THAT PATIENTS O2 WAS AT 85-87 AT ROOM AIR, O2 PLACED BACK ON PATIENT AND STATS NOW AT 95 PER NC.
[2023-08-24] VITALS (7 sets, daily range): BP systolic 103–119; BP diastolic 73–78; PULSE 74–89; TEMP 97.4–97.7
[2023-08-24 07:13] LABS: CALCIUM 9.2 mg/dL (8.4-10.2); CREATININE, serum 1.19 mg/dL (0.72-1.25); POTASSIUM 4.2 mmol/L (3.5-4.5)
--- NOTE | 2023-08-24 07:46 | NUR ---
SPO2 ON 2 LPM +96%, NPC, BS COARSE T/O. SPOT CHECK PATIENT ON RA, SPO2 96%.
[2023-08-24] MEDS ORDERED: PREDNISONE20 MG PO (08:33)
[2023-08-24] MEDS ORDERED: predniSONE 20 MG TAB PO SCH (09:00)
[2023-08-24] MEDS ORDERED: Lisinopril 20 MG TAB PO SCH (09:00)
--- NOTE | 2023-08-24 09:28 | NUR ---
PATIFENT QUALIFIES FOR HOME OXYGEN. SPO2 AT REST 92%. PAATIENT NEEDS 3LPM WHILE AMBULATING.
[2023-08-24] MEDS ORDERED: OXYGEN NASAL.CANN ×2 (09:38→09:40)
--- NOTE | 2023-08-24 11:41 | NUR ---
Assessment completed this am. Pt on RA while at rest. Requires 3L/NC of oxygen with exertion. Pt verbalized understanding. Plan for discharge later today- pending arrival of oxygen from [facility] [place] [place].
--- NOTE | 2023-08-24 13:54 | NUR ---
DME delivered home O2. Discharge instructions reviewed with patient- verbalizes understanding. Tele and INT d/c'd. Pt escorted to private vehicle via w/c and discharged home.
--- NOTE | 2023-08-24 14:09 | NUR ---
Robotic Welding Operator met with patient to present and review IM. Patient verbalized understanding and provided signature. SW placed form in chart and provided copy to patient. SW discussed home oxygen set up and patient advised he had home oxygen through [facility] in the past and would be agreeable to use them again. SW contacted [facility] and faxed referral with order. Oxygen supplies were delivered to patient's room. Discharge Plan; Home with home oxygen
== END 2023-08-24 13:56 | disposition home or self-care (01) | DRG 189 ==
LOC: COL.ER 18:30 → MEDICAL 23:21
PROVIDERS: Emergency Medicine; Internal Medicine; Physician Assistant; ADMIT Internal Medicine
DX: J96.01 Acute respiratory failure with hypoxia (principal); N17.9 Acute kidney failure, unspecified; J44.1 Chronic obstructive pulmonary disease with (acute) exacerbation; I50.32 Chronic diastolic (congestive) heart failure; Z68.42 Body mass index [BMI] 45.0-49.9, adult; G25.0 Essential tremor; I11.0 Hypertensive heart disease with heart failure; E11.9 Type 2 diabetes mellitus without complications; Z20.822 Contact with and (suspected) exposure to COVID-19; E78.5 Hyperlipidemia, unspecified; M10.9 Gout, unspecified; E66.01 Morbid (severe) obesity due to excess calories; G47.33 Obstructive sleep apnea (adult) (pediatric); Z86.711 Personal history of pulmonary embolism; Z86.718 Personal history of other venous thrombosis and embolism; Z88.6 Allergy status to analgesic agent; Z91.199 Patient's noncompliance with other medical treatment and regimen due to unspecified reason; Z79.4 Long term (current) use of insulin; Z79.899 Other long term (current) drug therapy; Z79.01 Long term (current) use of anticoagulants; Z23 Encounter for immunization
CPT/HCPCS: J0696; J1100; J1815; J7120; J7512

== ENCOUNTER 2024-02-07 15:55 | Emergency (ER) | payer MEDICARE ==
[~2024-02-07] VITALS: Ht 180.3 cm; Wt 148.6 kg
[~2024-02-07 15:55] MED LIST changes: +BASAGLAR K100 UNIT/1 SQ; +OXYGEN NASAL.CANN
[2024-02-07 15:58] VITALS: TEMP 98.3
[2024-02-07] MEDS ORDERED: NS 1,000 ML IV ONE (16:15)
[2024-02-07 16:16] LABS: BASO # 0.1 K/mm3 (0.0-0.2); BASO % 0.8 % (0.0-2.0); EOS # 0.4 K/mm3 (0.0-0.7); EOS % 4.6 % (0.0-4.0); GRAN # 5.9 K/mm3 (1.4-6.5); GRAN % 65.7 % (42.2-75.2); HEMATOCRIT 47.4 % (42.0-52.0); HEMOGLOBIN 15.2 g/dl (13.5-18.0); LYMPH # 2.1 K/mm3 (1.2-3.4); LYMPH % 23.6 % (20.0-51.0); MEAN CELL VOLUME 96 fl (80.0-100.0); MEAN CORPUSCULAR HEMOGLOBIN 31 pg (27-31); MEAN CORPUSCULAR HGB CONC 32 g/dl (33.0-37.0); MEAN PLATELET VOLUME 10.2 fl (7.4-10.4); MONO # 0.4 K/mm3 (0.1-0.6); MONO % 4.9 % (1.7-9.3); PLATELET COUNT 225 K/mm3 (130-400); RED BLOOD COUNT 4.94 M/mm3 (4.20-5.60); REDCELL DISTRIBUTION WIDTH-CV 14.3 % (11.5-14.5)
[2024-02-07 16:31] LABS: ALANINE AMINOTRANSFERASE 15 U/L (0-55); ALKALINE PHOSPHATASE 100 U/L (40-150); ANION GAP 13 mmol/L (7-16); AST,SGOT 19 U/L (5-34); BILIRUBIN,TOTAL 0.5 mg/dL (0.2-1.2); BLOOD UREA NITROGEN 17 mg/dL (8-26); CALCIUM 9.4 mg/dL (8.4-10.2); CHLORIDE 99 mEq/L (98-107); CREATININE, serum 1.45 mg/dL (0.72-1.25); GLUCOSE 198 mg/dL (70-99); POTASSIUM 4.2 mEq/L (3.5-4.5); SODIUM 138 mEq/L (136-145); TOTAL PROTEIN 7.2 g/dl (6.2-8.1)
[2024-02-07 16:37] LABS: TROPONIN-I < 0.010 ng/mL (0.00-0.033)
[2024-02-07 17:36] VITALS: BP 127/81; PULSE 90
== END 2024-02-07 17:39 | disposition home or self-care (01) ==
LOC: COL.ER 15:55
PROVIDERS: Physician Assistant
DX: J44.1 Chronic obstructive pulmonary disease with (acute) exacerbation (principal); R07.89 Other chest pain; J98.6 Disorders of diaphragm; Z99.81 Dependence on supplemental oxygen; Z79.01 Long term (current) use of anticoagulants; Z87.891 Personal history of nicotine dependence
CPT/HCPCS: J7030